=== PATIENT | male | born 1970 | race American Indian/Alaskan Native ===

== ENCOUNTER 2021-07-01 09:48 | Emergency (ER) | payer OTHER ==
[2021-07-01 10:05] VITALS: BP 144/84
[2021-07-01] MEDS ORDERED: HYDROcodone/ACETAMINOPHEN 10-325MG TAB PO ONE (10:06)
--- NOTE | 2021-07-01 10:44 | XRay Report ---
LEFT FOOT 3 VIEWS INDICATION / CLINICAL INFORMATION: Left foot pain and swelling after dropping 50 pounds on foot yesterday. COMPARISON: None available. FINDINGS: BONES and JOINT(S): Best seen on the AP view is a likely acute mildly displaced fracture through the base of the first metatarsal. No dislocation. There is a posterior calcaneal enthesophyte without sig nificant arthritis elsewhere. SOFT TISSUES: Moderate edema is noted along the forefoot. ADDITIONAL FINDINGS: None. IMPRESSION: Left first metatarsal fracture with associated swelling. Signer Name: Eliezer Khan MD Signed: 07/01/2021 10:40 AM Workstation Name: [id number]
--- NOTE | 2021-07-01 11:31 | Emergency Department Report ---
ED Lower Extremity HPI - General Chief Complaint: Extremity Injury, Lower Stated Complaint: LT FOOT SWOLLEN/PAIN Time Seen by Provider: 07/01/21 10:01 Source: patient Mode of arrival: Ambulatory Limitations: Physical Limitation - History of Present Illness Initial Comments: This is a 51-year-old male nontoxic, well nourished in appearance, no acute sign s of distress presents to the ED with c/o of left foot pain 1 day. Patient stated that he dropped a 50 ib speaker. Patient denies any other injuries or trauma. Patient denies any numbness, tingling, fever, chills, nausea, vomiting, chest pain, shortness of breath, headache, stiff neck. Patient denies any joint swelling or joint redness. Patient denies decreased range of motion. Patient stated has decreased gait due to pain. Patient denies any allergies. MD Complaint: foot injury -: days(s) Injury: Foot: Left Severity: mild Severity scale (0 -10): 8 Improves With: immobilization Worsens With: weight bearing, movement, palpation Associated Symptoms: swelling, able to partially bear weight. denies: snap/pop sensation, numbness, tingling, unable to bear weight - Related Data Previous Rx's Medication Instructions Recorded Last Taken Type DOXYCYCLINE Hyclate [Vibramycin 100 mg PO BID #20 capsule 02/20/14 Unknown Rx CAP] HYDROcodone/APAP 5-325 [[place] 1 each PO Q6HR PRN #16 tablet 02/20/14 Unknown Rx 5/325 mg] Naproxen 500 mg PO Q12H PRN #12 tablet 07/01/21 Unknown Rx Allergies Allergy/AdvReac Type Severity Reaction Status Date / Time No Known Allergies Allergy Unverified 07/01/21 09:56 ED Review of Systems ROS: Stated complaint: LT FOOT SWOLLEN/PAIN Other details as noted in HPI Comment: All other systems reviewed and negative Constitutional: denies: chills, fever Eyes: denies: eye pain, eye discharge, vision change ENT: denies: ear pain, throat pain Respiratory: denies: cough, shortness of breath, wheezing Cardiovascular: denies: chest pain, palpitations Endocrine: no symptoms reported Gastrointestinal: denies: abdominal pain, nausea, diarrhea Genitourinary: denies: urgency, dysuria Musculoskeletal: denies: back pain, joint swelling, arthralgia Skin: denies: rash, lesions Neurological: denies: headache, weakness, paresthesias Psychiatric: denies: anxiety, depression Hematological/Lymphatic: denies: easy bleeding, easy bruising ED Past Medical Hx - Past Medical History Previous Medical History?: No - Surgical History Additional Surgical History: INTESTINAL BLOCKAGE - Social History Smoking Status: Current Every Day Smoker Substance Use Type: Alcohol - Medications Home Medications: Home Medications Medication Instructions Recorded Confirmed Last Taken Type DOXYCYCLINE Hyclate [Vibramycin 100 mg PO BID #20 capsule 02/20/14 Unknown Rx CAP] HYDROcodone/APAP 5-325 [[place] 1 each PO Q6HR PRN #16 tablet 02/20/14 Unknown Rx 5/325 mg] Naproxen 500 mg PO Q12H PRN #12 tablet 07/01/21 Unknown Rx ED Physical Exam - General Limitations: Physical Limitation General appearance: alert, in no apparent distress - Head Head exam: Present: atraumatic, normocephalic - Eye Eye exam: Present: normal appearance - Neck Neck exam: Present: normal inspection, full ROM. Absent: lymphadenopathy - Respiratory Respiratory exam: Absent: respiratory distress - Cardiovascular Cardiovascular Exam: Present: regular rate - Extremities Exam Extremities exam: Present: full ROM, tenderness, normal capillary refill, pedal edema. Absent: joint swelling, calf tenderness - Expanded Lower Extremity Exam Left Hip exam: Present: normal inspection, full ROM. Absent: tenderness, swelling Upper Leg exam: Present: normal inspection, full ROM. Absent: tenderness, swelling Knee exam: Present: normal inspection, full ROM. Absent: tenderness, swelling Lower Leg exam: Present: normal inspection, full ROM. Absent: tenderness, swelling Ankle exam: Present: normal inspection, full ROM. Absent: tenderness, swelling, abrasion, laceration, ecchymosis, deformity, crepidus, dislocation, erythema, anterior draw sign Foot/Toe exam: Present: full ROM, tenderness, swelling, ecchymosis. Absent: abrasion, laceration, deformity, crepidus, dislocation, erythema, amputation, puncture wound, foreign body, calcaneal tenderness, tenderness at base of 5th metatarsal, nail avulsion, subungual hematoma Neuro vascular tendon exam: Present: no vascular compromise. Absent: pulse deficit, abnormal cap refill, sensory deficit, extremity cold to touch Gait: Positive: observed and limited by pain - Back Exam Back exam: Present: full ROM - Neurological Exam Neurological exam: Present: alert, oriented X3, normal gait - Psychiatric Psychiatric exam: Present: normal affect, normal mood - Skin Skin exam: Present: warm, dry, intact, normal color. Absent: rash ED Course Vital Signs 07/01/21 10:03 Temperature 98.3 F Pulse Rate 72 Respiratory 20 Rate Blood Pressure 144/84 O2 Sat by Pulse 99 Oximetry - Reevaluation(s) Reevaluation #1: 07/01/21 11:33 Patient is speaking in full sentences with no signs of distress noted. ED Lower Extremity MDM - Radiology Data [facility] [address] [place] [address] XRay Report Signed Patient: RON KESSLER MR#: [id number] 2 : 1970 Acct:[id number] Age/Sex: 51 / M ADM Date: 07/01/21 Loc: ED Attending Dr: Ordering Physician: TOBIAS BARR NP Date of Service: 07/01/21 Procedure(s): XR foot 3+V LT Accession Number(s): [id number] cc: TOBIAS BARR NP Fluoro Time In Minutes: LEFT FOOT 3 VIEWS INDICATION / CLINICAL INFORMATION: Left foot pain and swelling after dropping 50 pounds on foot yesterday. COMPARISON: None available. FINDINGS: BONES and JOINT(S): Best seen on the AP view is a likely acute mildly displaced fracture through the base of the first metatarsal. No dislocation. There is a posterior calcaneal enthesophyte without significant arthritis elsewhere. SOFT TISSUES: Moderate edema is noted along the forefoot. ADDITIONAL FINDINGS: None. IMPRESSION: Left first metatarsal fracture with associated swelling. Signer Name: Eliezer Khan MD Signed: 07/01/2021 10:40 AM Workstation Name: [id number] Transcribed By: [place] Dictated By: Eliezer Khan MD Electronically Authenticated By: Eliezer Khan MD Signed Date/Time: 07/01/21 1040 DD/ 1037 TD/TT: - Medical Decision Making This is a 51-year-old male that presents with right metatarsal fracture. Patient is stable and was examined by me. I referred patient to an orthopedic doctor for further evaluation. X-ray has been obtained and dictated by the r adiologist. Patient is notified of the x-ray report with noted by the patient. Patient received a posterior short leg splint and crutches. Post splint assessment: neurovasular intact; normal cap refill <2 second; normal sensation; denies decreaed sensation; normal ROM of digits. Patient was educated by RN how to use crutches. Patient received [place] for pain as stated patient symptoms improved and subsided. Patient stated from member will drive patient home after discharge due to possible drowsiness. Patient was instructed to RICE therapy. Patient discharged with naproxen. At time of discharge, the patient does not seem toxic or ill in appearance. No acute signs of distress noted. Patient agrees to discharge treatment plan of care. No further questions noted by the patient. Critical care attestation.: If time is entered above; I have spent that time in minutes in the direct care of this critically ill patient, excluding procedure time. ED Disposition Clinical Impression: Fracture of metatarsal of left foot, closed Qualifiers: Encounter type: initial encounter Metatarsal bone: first Fracture alignment: displaced Qualified Code(s): S92.312A - Displaced fracture of first metatarsal bone, left foot, initial encounter for closed fracture Disposition: 01 HOME / SELF CARE / HOMELESS Is pt being admited?: No Does the pt Need Aspirin: No Condition: Stable Instructions: Cast or Splint Care, Adult, [id number], Cast or Splint Care, Adult, Metatarsal Fracture Additional Instructions: Follow-up with a orthopedic doctor in 3-5 days or if symptoms worsen and continue return to emergency room as soon as possible. No physical activity that extremity until cleared by orthopedic doctor Prescriptions: Naproxen 500 mg PO Q12H PRN #12 tablet PRN Reason: Pain , Severe (7-10) Referrals: PRIMARY MD ROSETTA [Primary Care Provider] - 3-5 Days RHODA MCALLISTER MD [Staff Physician] - 3-5 Days Forms: Work/School Release Form(ED) Time of Disposition: 11:36
== END 2021-07-01 11:51 | disposition home or self-care (01) ==
LOC: ED 09:48
DX: S92.312A Displaced fracture of first metatarsal bone, left foot, initial encounter for closed fracture (principal); F17.200 Nicotine dependence, unspecified, uncomplicated; X58.XXXA Exposure to other specified factors, initial encounter; Y93.89 Activity, other specified; Y92.89 Other specified places as the place of occurrence of the external cause; Y99.8 Other external cause status
CPT/HCPCS: 99283

== ENCOUNTER 2021-07-13 13:13 | Outpatient (CLI) | payer OTHER ==
--- NOTE | 2021-07-13 16:37 | XRay Report ---
Left foot 3 views INDICATION: Fracture FINDINGS: There is a mildly displaced fracture through the base of the great toe metatarsal with exte nsion into the joint space and tarsometatarsal joint. Diffuse soft tissue swelling is seen. No signif icant callus formation or healing in this time. Cuneiforms and cuboid appear intact. MTP joints appea r normal. IMPRESSION: Fracture of the base of the great toe metatarsal with intra-articular extension into the tarsometatar jus joint. Signer Name: Marlo Mathew MD Signed: 07/13/2021 4:33 PM Workstation Name: [email or web address]
== END 2021-07-13 13:14 | disposition home or self-care (01) ==
LOC: XRAY 13:13
PROVIDERS: ATTEND Orthopaedic Surgery
DX: S92.912A Unspecified fracture of left toe(s), initial encounter for closed fracture (principal); S92.302A Fracture of unspecified metatarsal bone(s), left foot, initial encounter for closed fracture; M79.89 Other specified soft tissue disorders; X58.XXXA Exposure to other specified factors, initial encounter; Y93.89 Activity, other specified; Y92.89 Other specified places as the place of occurrence of the external cause; Y99.8 Other external cause status

== ENCOUNTER 2021-07-27 13:21 | Outpatient (CLI) | payer OTHER ==
--- NOTE | 2021-07-27 14:42 | XRay Report ---
LEFT FOOT HISTORY: Metatarsal fracture. COMPARISON: 07/13/2021, 07/01/2021. TECHNIQUE: 3 views of the left foot were obtained. FINDINGS: Bones: Known mildly displaced intra-articular fracture at the medial base of the first metatarsal jacy ws slight interval callus formation suggesting interval healing. Stable bipartite medial sesamoid. Joint spaces: Maintained. Soft tissues: No significant abnormality. Additional findings: None. IMPRESSION: Known mildly displaced intra-articular fracture at the medial base of the left first metatarsal shows slight interval healing. Signer Name: Vincent Bautista MD Signed: 07/27/2021 2:38 PM Workstation Name: [id number]
== END 2021-07-27 13:22 | disposition home or self-care (01) ==
LOC: XRAY 13:21
PROVIDERS: ATTEND Orthopaedic Surgery
DX: S92.312A Displaced fracture of first metatarsal bone, left foot, initial encounter for closed fracture (principal); S92.302A Fracture of unspecified metatarsal bone(s), left foot, initial encounter for closed fracture; X58.XXXA Exposure to other specified factors, initial encounter; Y93.89 Activity, other specified; Y92.89 Other specified places as the place of occurrence of the external cause; Y99.8 Other external cause status

== ENCOUNTER 2021-08-10 13:38 | Outpatient (CLI) | payer OTHER ==
--- NOTE | 2021-08-10 15:58 | XRay Report ---
Left foot 3 views INDICATION: Fracture COMPARISON: July 27, 2021 FINDINGS: There is a fracture deformity within the proximal great toe metatarsal with extends into th e tarsometatarsal joint. There may be some slight sclerosis suggesting some healing. Diffuse soft tis shital swelling seen throughout the foot and ankle. Calcaneal spurs. Signer Name: Marlo Mathew MD Signed: 08/10/2021 3:54 PM Workstation Name: [id number]
== END 2021-08-10 13:39 | disposition home or self-care (01) ==
LOC: XRAY 13:38
PROVIDERS: ATTEND Orthopaedic Surgery
DX: S92.302A Fracture of unspecified metatarsal bone(s), left foot, initial encounter for closed fracture (principal); M79.89 Other specified soft tissue disorders; M77.32 Calcaneal spur, left foot; X58.XXXA Exposure to other specified factors, initial encounter; Y93.89 Activity, other specified; Y92.89 Other specified places as the place of occurrence of the external cause; Y99.8 Other external cause status

== ENCOUNTER 2021-08-31 12:30 | Outpatient (CLI) | payer OTHER ==
--- NOTE | 2021-08-31 15:58 | XRay Report ---
LEFT FOOT 3 VIEWS INDICATION / CLINICAL INFORMATION: LEFT FOOT PAIN. COMPARISON: 08/10/21. FINDINGS: BONES / JOINT(S): A longitudinal fracture involving the base of the first metatarsal medially is agai n identified. Extension of the fracture into the tarsometatarsal joint space was also present previou sly. Mild progressive healing of the fracture has occurred since the prior study. No new abnormality is seen. Prominent spurring at the insertion of the Achilles tendon on the calcaneus is stable. There is also a small plantar calcaneal spur. SOFT TISSUES: Associated soft tissue swelling medially is still present, but has improved. ADDITIONAL FINDINGS: None. Signer Name: Chaka Pappas MD Signed: 08/31/2021 3:53 PM Workstation Name: [id number]
== END 2021-08-31 12:31 | disposition home or self-care (01) ==
LOC: XRAY 12:30
PROVIDERS: ATTEND Orthopaedic Surgery
DX: S92.312A Displaced fracture of first metatarsal bone, left foot, initial encounter for closed fracture (principal); S92.302A Fracture of unspecified metatarsal bone(s), left foot, initial encounter for closed fracture; M77.32 Calcaneal spur, left foot; X58.XXXA Exposure to other specified factors, initial encounter; Y93.89 Activity, other specified; Y92.89 Other specified places as the place of occurrence of the external cause; Y99.8 Other external cause status